=== PATIENT | male | born 1990 | race Caucasian/White ===

== ENCOUNTER 2019-06-08 12:01 | Emergency (ER) | payer OTHER ==
[2019-06-08 12:24] VITALS: BMI 25.7
--- NOTE | 2019-06-08 13:14 | PDOC ---
History of Present Illness - General Chief Complaint: Syncope/Near Syncope Stated Complaint: Cold Symptoms/faint Time Seen by Provider: 06/08/19 13:13 - History of Present Illness Initial Comments: 29 year old male with no PMH presenting with fevers, chills, coughs, and diffuse body aches or the past three days with severely decreased PO intake and syncope earlier today. States that he was urinating and defecating then stood up and felt lightheaded. He went to the kitchen afterward to make some soup and started to feel more lightheaded in front of the hot stove. He turned off the stove and went to the living room but doesn't recall the rest after motioning over there. He woke up a few minutes later in front of the couch laying on the floor. He doesn't recall falling and has no extremity or head pain. He has not been nauseous or vomiting. He does have multiple sick contacts. He takes Theraflu and Excedrin at home for his symptoms with excellent relief. He is drinking 4 8oz cups of water daily but feels that he is trying his best. Denies nausea, vomiting, diarrhea, chest pain, or other symptoms. 06/08/19 14:08 Past History - Past Medical History Allergies/Adverse Reactions: Allergies Allergy/AdvReac Type Severity Reaction Status Date / Time No Known Allergies Allergy Verified 06/08/19 12:22 Home Medications: Ambulatory Orders Amox-Tr/K Cl [Augmentin - 875Mg Tablet] 1 tab PO BID #20 tablet 08/10/15 Ibuprofen [Motrin -] 600 mg PO TID PRN #21 tablet 08/10/15 COPD: No - Psycho Social/Smoking Cessation Hx Smoking History: Never smoked Have you smoked in the past 12 months: No Number of Cigarettes Smoked Daily: 2 Hx Alcohol Use: Yes Drug/Substance Use Hx: No Substance Use Type: None Review of Systems - Review of Systems Constitutional: No: Chills, Diaphoresis, Fever HEENTM: No: Eye Pain, Blurred Vision, Tearing Respiratory: Yes: Cough. No: Orthopnea, Shortness of Breath Cardiac (ROS): No: Chest Pain, Edema, Irregular Heart Rate ABD/GI: Yes: Poor Appetite, Poor Fluid Intake. No: Nausea, Vomiting : No: Burning, Dysuria, Discharge Musculoskeletal: No: Back Pain, Muscle Pain Integumentary: No: Erythema, Flushing, Lesions Neurological: Yes: Headache. No: Numbness, Paresthesia Psychiatric: No: Anxiety, Depression Endocrine: Yes: Increased Thirst Hematologic/Lymphatic: No: Anemia, Blood Clots *Physical Exam - Vital Signs Last Vital Signs Temp Pulse Resp BP Pulse Ox 98.9 F 90 16 117/79 98 06/08/19 12:21 06/08/19 12:21 06/08/19 12:21 06/08/19 12:21 06/08/19 12:21 - Physical Exam General Appearance: Yes: Nourished, Appropriately Dressed. No: Apparent Distress HEENT: positive: EOMI, PRIMO, Normal Voice. negative: Normal ENT Inspection ( very dry mucous membranes) Neck: positive: Trachea midline, Normal Thyroid, Supple. negative: Tender, Rigid Respiratory/Chest: positive: Lungs Clear, Normal Breath Sounds. negative: Chest Tender, Respiratory Distress, Accessory Muscle Use Cardiovascular: positive: Regular Rhythm, Regular Rate Gastrointestinal/Abdominal: positive: Normal Bowel Sounds, Flat, Soft. negative : Tender Lymphatic: negative: Adenopathy, Tenderness Musculoskeletal: positive: Normal Inspection. negative: Decreased Range of Motion Extremity: positive: Normal Capillary Refill, Normal Inspection, Normal Range of Motion. negative: Tender Integumentary: positive: Normal Color, Dry, Warm Neurologic: positive: Fully Oriented, Alert, Normal Mood/Affect, Normal Response , Motor Strength 5/5 Medical Decision Making - Medical Decision Making 29 year odl with no pMH presenting with fevers, coughs, diffuse body aches, and syncope for the pat three days. No neck stiffness or overall toxic appearance so not likely meningitis. Patients VSS in our ED. EKG showing rate 67, GA 134, QRS 86, and Qtc 424, with normal axis. No sign of ST changes, WPW, brugada, or other concerning EKG changes. Neuro exam completely intact and patient ambulatory without issue. Symptoms drastically improved after 2 L NS (dry mucous membranes) and Tylenol 975 PO. Patient would like to go home. Flu swab and oseltamivir unnecessary given no comorbidities and symptom duration > 2 days. Will tell patient to adhere to good hand hygiene and cough hygiene to prevent spread of presumed flu. Also given return precautions and follow up instructions. 06/08/19 15:26 Discharge - Discharge Information Problems reviewed: Yes Clinical Impression/Diagnosis: Viral upper respiratory illness Condition: Improved Disposition: HOME - Admission No - Follow up/Referral Referrals: Dusty Richards [Primary Care Provider] - - Patient Discharge Instructions Patient Printed Discharge Instructions: DI for Viral Upper Respiratory Infection -- Adult Additional Instructions: Please drink at least 8 cups of water a day. Please use tylenol for the fever and aches every 4-6 hours. Please see your PCP in one week. Please return to the ED if you have any new or worsening symptoms. - Post Discharge Activity
[2019-06-08] MEDS ORDERED: SODIUM CHLORIDE 0.9% 500 ML INFUS.BAG IV ONE (13:25)
[2019-06-08] MEDS ORDERED: ACETAMINOPHEN 500 MG TABLET (FP) PO ONE (13:25)
--- NOTE | 2019-06-08 13:26 | PDOC ---
Attending Attestation - Resident Resident Name: [email or web address] - ED Attending Attestation I have performed the following: I have examined & evaluated the patient, The case was reviewed & discussed with the resident, I agree w/resident's findings & plan, Exceptions are as noted - HPI HPI: 06/08/19 15:34 Mr. Vogel is a 29-year-old male presenting to the emergency department with a complaint of syncope. Patient states he has been ill for the past 2 to 3 days. He has had decreased appetite, decreased fluid intake. No documented fever although he notes that he woke up last night drenched in sweat (possible fever) No vomiting No diarrhea (patient has noticed loose stools) No abdominal pain or tenderness No recent travel - Physicial Exam PE: 06/08/19 13:26 GENERAL: The patient is in no acute distress. ENT: Ears normal, nares patent, oropharynx clear without exudates. Dry mucous membranes. NECK: Normal range of motion, supple LUNGS: Breath sounds equal, clear to auscultation bilaterally. No wheezes, and no crackles. HEART:Regular rate and rhythm, normal S1 and S2 without murmur, rub or gallop. ABDOMEN: Soft, nontender, normoactive bowel sounds. EXTREMITIES: Normal range of motion, no edema. NEUROLOGICAL: Cranial nerves II through XII grossly intact. Normal speech. No focal neurological deficits. SKIN: Warm, Dry, normal turgor, no rashes or lesions noted. 06/08/19 15:35 - Medical Decision Making 06/08/19 15:35 29-year-old male presenting to the emergency department status post syncopal episode this afternoon, after having a bowel movement Patient has had decreased p.o. intake Clinically is very dry We will do: IV hydration 06/08/19 15:38 Patient states he is feeling better Is tolerating p.o. (liquids) We will plan to discharge home Follow-up with primary care physician
[2019-06-08] MEDS ORDERED: ACETAMINOPHEN 325 MG TABLET (FP) ONE (13:27)
[2019-06-08 16:14] VITALS: BP 122/74; PULSE 89; TEMP 98.9
--- NOTE | 2019-06-09 09:30 | EKG ---
Test Reason : Blood Pressure : / mmHG Vent. Rate : 067 BPM Atrial Rate : 067 BPM P-R Int : 134 ms QRS Dur : 086 ms QT Int : 402 ms P-R-T Axes : 001 075 033 degrees QTc Int : 424 ms NORMAL SINUS RHYTHM NORMAL ECG NO PREVIOUS ECGS AVAILABLE Confirmed by Jax Sommer MD ([id number]) on 06/09/2019 9:30:01 AM Referred By: Confirmed By:Jax Sommer MD
== END 2019-06-08 15:50 | disposition home or self-care (01) ==
LOC: JER 12:01
DX: J06.9 Acute upper respiratory infection, unspecified (principal); B97.89 Other viral agents as the cause of diseases classified elsewhere
CPT/HCPCS: 93005; 93010; 99281-25